=== PATIENT | male | born 1980 | race Caucasian/White ===

== ENCOUNTER 2023-10-21 01:32 | Emergency (ER) | payer OTHER | END 2023-10-21 02:13 | disposition home or self-care (01) | LOC: MW.ED 01:32 | DX: M79.661 Pain in right lower leg (principal); I10 Essential (primary) hypertension; Z79.899 Other long term (current) drug therapy; Z75.8 Other problems related to medical facilities and other health care | CPT/HCPCS: 73560-26-RT; 73560-RT; 99283 ==